=== PATIENT | female | born 1970 | race Caucasian/White ===

== ENCOUNTER → 2017-02-17 | Outpatient (CLI) | payer MEDICAID ==
[~2017-02-17] MED LIST: BACLOFEN 10MG T10 MG PO; BUPROPION HCL75 MG PO; CARISOPRODOL 3350 MG; FLECTOR1 EACH TD; GABAPENTIN300 MG PO; GABAPENTIN600 MG; HYDROCODONE ACETAMIN; LIDOCREAM5 GM TP; MEDROL 4MG. DOSE4 MG PO; MELOXICAM7.5 MG; MOTRIN 600MG.600 MG PO; PERCOCET 5/3251 EACH PO
[2017-02-17 20:26] LABS: HEMOGLOBIN 13.6 g/dL (12.2-16.2); LYMPH # 2.1 K/mm3 (0.7-4.5); LYMPH % 37.5 % (10-50.0)
[2017-02-17 20:49] LABS: BUN 12 mg/dL (7-18)
[2017-02-17 20:50] LABS: GFR (ESTIMATED) 60 ML/MIN (59-)
[2017-02-19 06:37] LABS: Vitamin D, 25-Hydroxy 31.1 ng/mL (30.0-100.0)
[2017-02-19 08:46] LABS: FSH 12.8 mIU/mL (.); Progesterone <0.1 ng/mL (.)
[2017-02-20 12:36] LABS: Estrogens, Total 107 pg/mL (.)
== END ==
LOC: LAB 15:43
PROVIDERS: Emergency Medicine
DX: R53.83 Other fatigue (principal)